=== PATIENT | male | born 1965 | race African-American/Black ===

== ENCOUNTER 2016-12-01 10:28 | Emergency (ER) | payer OTHER ==
[2016-12-01 10:48] VITALS: BP 149/104; PULSE 66; RESP 18; TEMP 97.6
--- NOTE | 2016-12-01 11:28 | XR ---
EXAMINATION TYPE: XR wrist limited RT DATE OF EXAM: 12/01/2016 11:12 AM COMPARISON: 08/11/2016 HISTORY: 51-year-old male with pain from lifting 2 days ago, felt a pop in the wrist. TECHNIQUE: 2 views FINDINGS: There is mild positive ulnar variance noted. The radiocarpal and distal radioulnar joints otherwise a ppear intact and midcarpal compartment also appears intact. The scapholunate interval appears slightl y prominent but at 1.8 mm. This still falls within normal limits. No acute fracture or dislocation se en. IMPRESSION: 1. Incidental positive ulnar variance which can be a cause of ulnar impaction syndrome and can lead t o tears of the TFC. 2. The scapholunate interval is prominent but still measures within normal limits. If indicated and i f there are symptoms of wrist instability, consider a navicular view to get a second look at the scap holunate interval.
--- NOTE | 2016-12-01 11:41 | ED ---
General Adult HPI - General Chief complaint: Extremity Injury, Upper Stated complaint: rt wrist injury Time Seen by Provider: 12/01/16 10:53 Source: patient, RN notes reviewed Mode of arrival: ambulatory Limitations: no limitations - History of Present Illness Initial comments: Patient 51-year-old male who presents emergency room today with chief complaint of increased pain to the right wrist area. He does admit that she felt a pop when he was at work a few days ago with movement of extension and flexion. Patient states that been having some discomfort over the posterior aspect of the right wrist. He states worse with certain movements. Patient denies any other complaint or associate symptoms. Patient does admit that his employer one to come here to the emergency room for a check and possible restriction. Patient denies any recent fever, chills, shortness of breath, chest pain, back pain, abdominal pain, nausea or vomiting, numbness or tingling, dysuria or hematuria, constipation or diarrhea, headaches or visual changes, or any other complaints. - Related Data Previous Rx's Medication Instructions Recorded Ibuprofen [Motrin] 600 mg PO Q6HR PRN #40 day 12/01/16 Allergies Allergy/AdvReac Type Severity Reaction Status Date / Time No Known Allergies Allergy Verified 12/01/16 11:01 Review of Systems ROS Statement: Those systems with pertinent positive or pertinent negative responses have been documented in the HPI. ROS Other: All systems not noted in ROS Statement are negative. Past Medical History Past Medical History: No Reported History Additional Past Medical History / Comment(s): back History of Any Multi-Drug Resistant Organisms: None Reported Additional Past Surgical History / Comment(s): right leg surgery as child Past Psychological History: No Psychological Hx Reported Smoking Status: Never smoker Past Alcohol Use History: None Reported Past Drug Use History: None Reported General Exam - General Exam Comments Initial Comments: General: The patient is awake and alert, in no distress, and does not appear acutely ill. Neck: The neck is supple, there is no tenderness or JVD. Cardiovascular: There is a regular rate and rhythm. No murmur, rub or gallop is appreciated. Respiratory: Lungs are clear to auscultation, respirations are non-labored, breath sounds are equal. No wheezes, stridor, rales, or rhonchi. Musculoskeletal: Normal appearance the right wrist. Shows full range motion. Mild tenderness to the dorsal aspect of the right radius and ulna. Patient shows full range of motion. Pain reproduced with flexion and extension. Sensations intact with pulses equal bilaterally 2+. Neurological: A&O x 3. CN II-XII intact, There are no obvious motor or sensory deficits. Coordination appears grossly intact. Speech is normal. Skin: Skin is warm and dry and no rashes or lesions are noted. Psychiatric: Normal mood and affect. Limitations: no limitations Course Vital Signs 12/01/16 10:44 Temperature 97.6 F Pulse Rate 66 Respiratory 18 Rate Blood Pressure 149/104 O2 Sat by Pulse 96 Oximetry Medical Decision Making - Medical Decision Making Patient's x-ray reviewed shows 1. Incidental positive only variants which he can be a cause ulnar impaction syndrome and can lead to use TFC. 2. Scapholunate interval is prominent but still measures within normal limits. Patient has no instability. Patient denies follow-up with orthopedics. Will be splinted in Tevin wrap. The emergency room. Advised to use when up and moving around. Advised not to sleep. Patient Denies Use Ibuprofen for Pain. Will Be Given a Work Note for Light Duty. Disposition Clinical Impression: Right wrist pain Disposition: HOME SELF-CARE Condition: Good Instructions: Wrist Injury (ED) Additional Instructions: Please follow-up with orthopedics over the next week as discussed. Please return here to the emergency room symptoms increase worsen or for any other concerns. Prescriptions: Ibuprofen [Motrin] 600 mg PO Q6HR PRN #40 day PRN Reason: Pain Referrals: Brenda Vazquez MD [Primary Care Provider] - 1-2 days Caleb Gonzalez MD [STAFF PHYSICIAN] - 1-2 days Time of Disposition: 11:40
== END 2016-12-01 11:52 | disposition home or self-care (01) ==
LOC: EC 10:28
DX: M25.531 Pain in right wrist (principal); X58.XXXA Exposure to other specified factors, initial encounter; Y99.0 Civilian activity done for income or pay
CPT/HCPCS: 99283

== ENCOUNTER 2017-01-13 13:53 | Emergency (ER) | payer OTHER ==
[2017-01-13 14:01] VITALS: BP 141/91; PULSE 76; RESP 18; TEMP 98.4
[2017-01-13] MEDS ORDERED: KETOROLAC 60 MG/2 ML VIAL IM STA (14:18)
[2017-01-13] MEDS ORDERED: ORPHENADRINE 30 MG/ML 2 ML VIAL IM STA (14:18)
--- NOTE | 2017-01-13 14:23 | ED ---
General Adult HPI - General Chief complaint: Back Pain/Injury Stated complaint: Back Pain Time Seen by Provider: 01/13/17 14:10 Source: patient, RN notes reviewed Mode of arrival: ambulatory Limitations: no limitations - History of Present Illness Initial comments: This is a 51-year-old male presents with acute on chronic lower back pain. Patient states he got a new job and has been lifting more at work causing increased lower back pain. Patient denies any numbness/tingling/weakness or radicular pain. Patient denies any change in bowel or bladder function or loss of sensation to the saddle area. Patient denies any fall or injury to the back. Patient has not taken anything for the pain. Patient states his work sent him in for evaluation. Patient is able to ambulate but states standing straight makes his back pain worse. Sitting and resting makes his back pain better. Patient denies any history of asthma, aspirin ALLERGY, bleeding ulcers or kidney problems. Patient denies any recent fever, chills, shortness breath, chest pain, abdominal pain, nausea/vomiting/diarrhea, numbness, tingling, hematuria, headache, or visual changes, or any other complaints. - Related Data Previous Rx's Medication Instructions Recorded Ibuprofen [Motrin] 600 mg PO Q6HR PRN #40 day 12/01/16 Allergies Allergy/AdvReac Type Severity Reaction Status Date / Time No Known Allergies Allergy Verified 01/13/17 14:01 Review of Systems ROS Statement: Those systems with pertinent positive or pertinent negative responses have been documented in the HPI. ROS Other: All systems not noted in ROS Statement are negative. Past Medical History Past Medical History: No Reported History Additional Past Medical History / Comment(s): back History of Any Multi-Drug Resistant Organisms: None Reported Additional Past Surgical History / Comment(s): right leg surgery as child Past Psychological History: No Psychological Hx Reported Smoking Status: Never smoker Past Alcohol Use History: None Reported Past Drug Use History: None Reported General Exam - General Exam Comments Initial Comments: General: The patient is awake and alert, in no distress, and does not appear acutely ill. Neck: No posterior cervical midline tenderness. The neck is supple, there is no tenderness or JVD. Cardiovascular: There is a regular rate and rhythm. No murmur, rub or gallop is appreciated. Respiratory: Lungs are clear to auscultation, respirations are non-labored, breath sounds are equal. No wheezes, stridor, rales, or rhonchi. Musculoskeletal: Patient has tenderness to palpation of the left paraspinal muscles. Otherwise patient has full range of motion, strength 5/5 and Sensation intact. Radial pulses 2+ bilaterally. Patient is ambulatory in the EC. Neurological: A&O x 3. CN II-XII intact, There are no obvious motor or sensory deficits. Coordination appears grossly intact. Speech is normal. Skin: Skin is warm and dry and no rashes or lesions are noted. Psychiatric: Normal mood and affect. Limitations: no limitations Course Vital Signs 01/13/17 13:59 Temperature 98.4 F Pulse Rate 76 Respiratory 18 Rate Blood Pressure 141/91 O2 Sat by Pulse 96 Oximetry Medical Decision Making - Medical Decision Making This is a 51-year-old male presented with chronic lower back pain. On physical exam patient is ambulatory in the EC and patient has mild tenderness to palpation of the left paraspinal muscles. Patient will be given Toradol and Norflex in the EC today. I discussed that patient refrain from lifting at work until his pain subsides. I discussed [id number] naproxen and Tylenol and heating pads for additional pain relief. I discussed return parameters. I discussed the patient follow-up with his primary care physician in one to 2 days or return to the EC for any worsening symptoms or for any further concerns. Patient was receptive to this plan patient will be discharged home. Disposition Clinical Impression: Acute exacerbation of chronic low back pain, Mechanical back pain Disposition: HOME SELF-CARE Condition: Good Instructions: Chronic Back Pain (ED) Additional Instructions: Please refrain from lifting until back pain improves. Please use over-the- counter naproxen/Aleve and/or Tylenol plus heating pads for pain relief. Please follow-up with their doctor in 1-2 days or return to the EC for any worsening symptoms or for any further concerns. Referrals: Brenda Vazquez MD [Primary Care Provider] - 1-2 days Time of Disposition: 14:25
== END 2017-01-13 14:39 | disposition home or self-care (01) ==
LOC: EC 13:53
DX: G89.29 Other chronic pain (principal); M54.5 Low back pain
CPT/HCPCS: 99283; 96372 ×2; J2360; J1885

== ENCOUNTER 2017-02-16 09:21 | Emergency (ER) | payer OTHER ==
[2017-02-16 09:30] VITALS: TEMP 97.5
--- NOTE | 2017-02-16 09:41 | ED ---
Extremity Problem HPI - General Chief complaint: Extremity Problem,Nontraumatic Stated complaint: knee pain Time Seen by Provider: 02/16/17 09:31 Source: patient, RN notes reviewed Mode of arrival: ambulatory Limitations: no limitations - History of Present Illness Initial comments: 52-year-old male presents emergency Department chief complaint right knee pain. Patient states she's been having pain last couple days. Patient states that he has been exercising more trying to lose weight and change in his diet. He states that he has noticed some pain on the medial aspect of his knee worse with movement better with rest. Denies any swelling. States there has been some clicking noted also. Patient states she's had no prior injuries though he does state sees pretty hard on his knees. Patient denies any calf pain, Swelling. Denies any chest pain or shortness breath. Denies any rashes. - Related Data Previous Rx's Medication Instructions Recorded Acetaminophen-Codeine 300-30mg 1 tab PO Q4H PRN #20 tablet 02/16/17 [Tylenol #3] Ibuprofen [Motrin] 600 mg PO Q8HR PRN #30 tab 02/16/17 Allergies Allergy/AdvReac Type Severity Reaction Status Date / Time No Known Allergies Allergy Verified 02/16/17 09:45 Review of Systems ROS Statement: Those systems with pertinent positive or pertinent negative responses have been documented in the HPI. ROS Other: All systems not noted in ROS Statement are negative. Past Medical History Past Medical History: No Reported History Additional Past Medical History / Comment(s): back History of Any Multi-Drug Resistant Organisms: None Reported Additional Past Surgical History / Comment(s): right leg surgery as child Past Psychological History: No Psychological Hx Reported Smoking Status: Never smoker Past Alcohol Use History: None Reported Past Drug Use History: None Reported General Exam Limitations: no limitations General appearance: alert, in no apparent distress Head exam: Present: atraumatic, normocephalic, normal inspection Neck exam: Present: normal inspection. Absent: tenderness, meningismus, lymphadenopathy Respiratory exam: Present: normal lung sounds bilaterally. Absent: respiratory distress, wheezes, rales, rhonchi, stridor Cardiovascular Exam: Present: regular rate, normal rhythm, normal heart sounds. Absent: systolic murmur, diastolic murmur, rubs, gallop, clicks Extremities exam: Present: other (Right knee full range of motion neurovascular intact there is no erythema no warmth no rashes and no edema patient has minimal tenderness on medial aspect along the joint line negative anterior posterior drawer tests joint above and below the right knee within normal limits ) Neurological exam: Present: reflexes normal. Absent: motor sensory deficit Skin exam: Present: warm, dry, intact, normal color. Absent: rash Course Vital Signs 02/16/17 09:28 Temperature 97.5 F L Pulse Rate 77 Respiratory 20 Rate Blood Pressure 143/97 O2 Sat by Pulse 98 Oximetry Medical Decision Making - Medical Decision Making 52-year-old male presented for knee pain. Patient has medial knee pain and right leg. Patient has some mild narrowing of a compartment on the medial aspect. Patient also has foreign body noted on x-ray. Patient may have a meniscus injury. Patient will follow-up with orthopedics return parameters were discussed. Disposition Clinical Impression: Right knee pain Disposition: HOME SELF-CARE Condition: Stable Instructions: Knee Pain (ED) Additional Instructions: Please return to the Emergency Department if symptoms worsen or any other concerns. Prescriptions: Acetaminophen-Codeine 300-30mg [Tylenol #3] 1 tab PO Q4H PRN #20 tablet PRN Reason: pain Ibuprofen [Motrin] 600 mg PO Q8HR PRN #30 tab PRN Reason: Pain Referrals: Brenda Vazquez MD [Primary Care Provider] - 1-2 days Wu Macedo DO [Doctor of Osteopathic Medicine] - 1-2 days Time of Disposition: 10:19
--- NOTE | 2017-02-16 10:12 | XR ---
EXAMINATION TYPE: XR knee complete RT DATE OF EXAM: 02/16/2017 9:59 AM COMPARISON: NONE HISTORY: 52 year-old male right knee pain for a few days TECHNIQUE: 3 views FINDINGS: Marginal spurring within the medial compartment. No acute fracture, subluxation, or dislocation. Enth esopathy seen at the superior and inferior patella. No significant knee joint effusion. Extensor mech anism is intact. No acute fracture or dislocation. There is a linear density seen projecting in the s oft tissues of the upper leg approximately 18 cm below the knee joint line. This is seen on the AP an d oblique views. IMPRESSION: 1. Mild medial compartment osteoarthrosis. No acute osseous abnormality seen. 2. A linear density projecting in the soft tissues of the upper leg, approximately 18 cm below the kn ee joint line. Refer to the AP and oblique views. Possible external artifact. Correlate to exclude re tained foreign body such as a needle.
[2017-02-16 10:28] VITALS: BP 130/84; PULSE 70; RESP 18
== END 2017-02-16 10:28 | disposition home or self-care (01) ==
LOC: EC 09:21
DX: M25.561 Pain in right knee (principal); Z98.890 Other specified postprocedural states
CPT/HCPCS: 99283

== ENCOUNTER 2018-11-30 10:59 | Emergency (ER) | payer OTHER ==
[2018-11-30 11:20] VITALS: BP 158/114; PULSE 67; RESP 18; TEMP 98.2
--- NOTE | 2018-11-30 12:09 | XR ---
EXAMINATION TYPE: XR hand complete RT DATE OF EXAM: 11/30/2018 CLINICAL HISTORY: Pain since jamming injury. TECHNIQUE: Frontal, lateral and oblique images of the right hand are obtained. COMPARISON: Right hand x-ray August 11, 2016 FINDINGS: There is no acute fracture/dislocation evident in the right hand. The joint spaces in the right hand appear within normal limits. The overlying soft tissue appears unremarkable. IMPRESSION: There is no acute fracture or dislocation in the right hand. No significant change from prior.
--- NOTE | 2018-11-30 12:24 | ED ---
Upper Extremity HPI - General Chief Complaint: Extremity Injury, Upper Stated Complaint: Finger injury Time Seen by Provider: 11/30/18 11:44 Source: patient Mode of arrival: ambulatory Limitations: no limitations - History of Present Illness Initial Comments: 83-year-old male with past medical history of hypertension presenting today for chief complaint of right digits 2 and 3 pain. Patient states he was shoveling and working outside when he had extended digits 2 and 3. Patient denies noticing any dislocation. Patient states he is able to range with pain. Patient denies any numbness tingling or loss sensation. Patient denies any wrist pain, elbow or shoulder pain. Patient denies any injury to neck falls or trauma. Patient denies any soft tissue swelling. Patient denies any redness or warmth to palpation. Patient's concerned about finger strain, he states he felt a pop. Patient attempted to work, his boss told him he should come to the emergency for evaluation. Upon arrival patient's remainder of review of systems negative, patient denies any recent fever, chills, shortness of breath, chest pain, back pain, abdominal pain, nausea or vomiting, numbness or tingling , dysuria or hematuria, constipation or diarrhea, headaches or visual changes, or any other complaints. - Related Data Previous Rx's Medication Instructions Recorded Acetaminophen-Codeine 300-30mg 1 tab PO Q4H PRN #20 tablet 02/16/17 [Tylenol #3] Ibuprofen [Motrin] 600 mg PO Q8HR PRN #30 tab 02/16/17 Allergies Allergy/AdvReac Type Severity Reaction Status Date / Time No Known Allergies Allergy Verified 11/30/18 11:20 Review of Systems ROS Statement: Those systems with pertinent positive or pertinent negative responses have been documented in the HPI. ROS Other: All systems not noted in ROS Statement are negative. Past Medical History Past Medical History: No Reported History Additional Past Medical History / Comment(s): back History of Any Multi-Drug Resistant Organisms: None Reported Additional Past Surgical History / Comment(s): right leg surgery as child Past Psychological History: No Psychological Hx Reported Smoking Status: Never smoker Past Alcohol Use History: None Reported Past Drug Use History: None Reported General Exam - General Exam Comments Initial Comments: General: The patient is awake and alert, in no distress, and does not appear acutely ill. Eye: Pupils are equal, round and reactive to light, extra-ocular movements are intact. No nystagmus. There is normal conjunctiva bilaterally. No signs of icterus. Ears, nose, mouth and throat: There are moist mucous membranes and no oral lesions. Neck: The neck is supple, there is no tenderness or JVD. Cardiovascular: There is a regular rate and rhythm. No murmur, rub or gallop is appreciated. Respiratory: Lungs are clear to auscultation, respirations are non-labored, breath sounds are equal. No wheezes, stridor, rales, or rhonchi. Musculoskeletal: Upon inspection of the digits of the left right hands are equal and comparison bilaterally. No fixed flexed or extended positions of digits 2 and 3 of the right hand. Each joint including MTP DIP and PIP joints were isolated of digits 2 and 3. Patient has full strength 55 as well as full ability. No evidence of obvious tendinous injury. Patient has full sensation both distal and proximal to injury site. Capillary refill less than 2 seconds. Radial pulse +2 equal bilaterally. Patient is able to make the okay fingers crossed and finger opposition of the hands bilaterally. Ulnar median and radial nerve intact. Patient tender palpation at the MTP joints of digits 2 and 3 of the right hand. No other areas of tenderness noted. Normal examination of the upper Cas[place] shoulders bilaterally. Neurological: A&O x 3. CN II-XII intact, There are no obvious motor or sensory deficits. Coordination appears grossly intact. Speech is normal. Skin: Skin is warm and dry and no rashes or lesions are noted. Psychiatric: Cooperative, appropriate mood & affect, normal judgment. Limitations: no limitations Course Vital Signs 11/30/18 11:19 Temperature 98.2 F Pulse Rate 67 Respiratory 18 Rate Blood Pressure 158/114 O2 Sat by Pulse 96 Oximetry Medical Decision Making - Medical Decision Making 53-year-old with complaint of digit pain and history of hyperextension. No obvious tendon injury on exam. X-ray negative for acute osseous process. Patient neurovascularly intact. Patient's fingers gerson taped. Patient instructed to take ibuprofen and Tylenol for pain management. Patient given orthopedic surgery follow-up for a decreased range of motion or weakness. Patient is to follow-up with primary care physician in the next 1-2 days. Patient given a work note. At this time do feel patient is stable for discharge , patient is to return to work with restrictions and use of right hand. Patient has restricted until primary care clearance. Patient is agreeable plan. Return parameters discussed at length, patient verbalizes understanding. Patient discharged stable condition appearing well. Patient had elevated blood pressure upon arrival, I struck the patient to follow-up with primary care provider for further evaluation. Patient denies any symptoms concerning for end organ damage. Isolated reading. Patient discharged in stable condition appearing well. Disposition Clinical Impression: Finger sprain Disposition: HOME SELF-CARE Condition: Good Instructions (If sedation given, give patient instructions): Finger Sprain (ED) Additional Instructions: Please use medication as discussed. Please follow-up with family doctor in the next 2 days for evaluation and elevated BP reading, please follow-up with orthopedic surgery for persistent symptoms or and limitations in ROM. Please return to emergency room if the symptoms increase or worsen or for any other concerns. Is patient prescribed a controlled substance at d/c from ED?: No Referrals: Brenda Vazquez MD [Primary Care Provider] - 1-2 days Caleb Gonzalez MD [STAFF PHYSICIAN] - 1-2 days Time of Disposition: 12:24
== END 2018-11-30 12:43 | disposition home or self-care (01) ==
LOC: EC 10:59
DX: S63.610A Unspecified sprain of right index finger, initial encounter (principal); S63.612A Unspecified sprain of right middle finger, initial encounter; W23.0XXA Caught, crushed, jammed, or pinched between moving objects, initial encounter; Y93.H1 Activity, digging, shoveling and raking
CPT/HCPCS: 99283

== ENCOUNTER 2018-12-10 10:57 | Emergency (ER) | payer OTHER ==
[2018-12-10 11:12] VITALS: PULSE 64; RESP 18
[2018-12-10] MEDS ORDERED: KETOROLAC 30 MG/ML 1 ML VIAL IM STA (11:35)
--- NOTE | 2018-12-10 11:40 | ED ---
General Adult HPI - General Chief complaint: Extremity Problem,Nontraumatic Stated complaint: Knee pain Time Seen by Provider: 12/10/18 11:22 Source: patient, RN notes reviewed Mode of arrival: ambulatory Limitations: no limitations - History of Present Illness Initial comments: 53-year-old male presents to the emergency department for a chief complaint of right knee pain. Patient states this began yesterday. Patient states it hurts in the lateral superior aspect of the right knee. He states this hurts more with flexion and with walking. Patient states his job wanted him to be evaluated. He denies any injuries. Patient denies any history of blood clots. He denies any pain in the posterior knee or calf. Denies noticing any swelling. Denies any fevers or warmth noted of the right knee. Patient states he has been very active and is a fast walker and is concerned he may have injured his knee. Patient has no other complaints at this time including shortness of breath, chest pain, abdominal pain, nausea or vomiting, headache, or visual changes. - Related Data Home Medications Medication Instructions Recorded Confirmed No Known Home Medications 12/10/18 12/10/18 Allergies Allergy/AdvReac Type Severity Reaction Status Date / Time No Known Allergies Allergy Verified 12/10/18 12:09 Review of Systems ROS Statement: Those systems with pertinent positive or pertinent negative responses have been documented in the HPI. ROS Other: All systems not noted in ROS Statement are negative. Past Medical History Past Medical History: No Reported History Additional Past Medical History / Comment(s): back History of Any Multi-Drug Resistant Organisms: None Reported Additional Past Surgical History / Comment(s): right leg surgery as child Past Psychological History: No Psychological Hx Reported Smoking Status: Never smoker Past Alcohol Use History: None Reported Past Drug Use History: None Reported General Exam Limitations: no limitations General appearance: alert, in no apparent distress Head exam: Present: atraumatic, normocephalic, normal inspection Eye exam: Present: normal appearance, PERRL, EOMI. Absent: scleral icterus, conjunctival injection, periorbital swelling ENT exam: Present: normal exam, normal oropharynx, mucous membranes moist, TM's normal bilaterally, normal external ear exam Neck exam: Present: normal inspection, full ROM. Absent: tenderness, meningismus, lymphadenopathy Respiratory exam: Present: normal lung sounds bilaterally. Absent: respiratory distress, wheezes, rales, rhonchi, stridor Cardiovascular Exam: Present: regular rate, normal rhythm, normal heart sounds. Absent: systolic murmur, diastolic murmur, rubs, gallop, clicks Extremities exam: Present: tenderness (Minimal tenderness noted to the right lateral superior aspect of the right knee. No posterior knee tenderness. No tenderness in the generalized knee.), normal capillary refill (Capillary refill less than 2 seconds and DP pulse 2+ in the right lower extremity), other ( Sensation intact in the right lower extremity.). Absent: full ROM (Patient has full extension with 90 flexion of the right knee), joint swelling (No edema, erythema, increased warmth noted in the right knee), calf tenderness (No tenderness in the right calf, negative Homans sign, no erythema or increased warmth,) Course Vital Signs 12/10/18 12/10/18 11:09 13:40 Temperature 97.6 F 98.2 F Pulse Rate 64 64 Respiratory 18 18 Rate Blood Pressure 172/72 141/98 O2 Sat by Pulse 97 98 Oximetry Medical Decision Making - Medical Decision Making X-ray of the right knee shows tricompartmental arthropathy most pronounced in the patellofemoral compartment. Likely the cause of patient's pain given the location of pain, no swelling, and patient's weight. Patient will take Motrin and Tylenol for pain and follow-up with orthopedics. Discussed returning if he has significant swelling or any other worsening symptoms. Disposition Clinical Impression: Knee pain, right Disposition: HOME SELF-CARE Condition: Good Instructions (If sedation given, give patient instructions): Knee Pain (ED) Additional Instructions: Please take Motrin and Tylenol for pain. Please follow-up with orthopedics in one to 2 days. Return to the emergency department if you have any worsening symptoms. Is patient prescribed a controlled substance at d/c from ED?: No Referrals: Brenda Vazquez MD [Primary Care Provider] - 1-2 days Miguel Bo MD [STAFF PHYSICIAN] - 1-2 days Time of Disposition: 13:21
--- NOTE | 2018-12-10 12:21 | XR ---
EXAMINATION TYPE: XR knee complete RT DATE OF EXAM: 12/10/2018 CLINICAL HISTORY: Right knee pain TECHNIQUE: Three views of the right knee are obtained. COMPARISON: 02/16/2017 FINDINGS: There is no acute fracture/dislocation evident in right knee. Protuberant osteophytes are seen from the superior and inferior patellar poles. Very small osteophytes are noted of the medial an d lateral compartments. Minimal medial compartment joint space narrowing is noted.. The overlying so ft tissue appears unremarkable. Artifacts are seen on the lateral view from overlying metallic densit ies. IMPRESSION: There is no acute fracture or dislocation in the right knee. Tricompartmental arthropath y most pronounced in the patellofemoral compartment.
[2018-12-10 13:42] VITALS: BP 141/98; TEMP 98.2
== END 2018-12-10 13:44 | disposition home or self-care (01) ==
LOC: EC 10:57
DX: M25.512 Pain in left shoulder (principal); M12.861 Other specific arthropathies, not elsewhere classified, right knee
CPT/HCPCS: 73562; 99283; 96372; J1885

== ENCOUNTER 2019-05-06 11:40 | Emergency (ER) | payer OTHER ==
[2019-05-06 11:45] VITALS: BP 151/78; PULSE 87; RESP 18; TEMP 98.4
--- NOTE | 2019-05-06 12:11 | ED ---
Back Pain HPI - General Chief Complaint: Back Pain/Injury Stated Complaint: Lower back pain Time Seen by Provider: 05/06/19 11:49 Source: patient, RN notes reviewed Mode of arrival: ambulatory Limitations: no limitations - History of Present Illness Initial Comments: 54-year-old male presents emergency Department chief complaint of low back pain. Patient states his ongoing chronic issue. Patient denies any bowel bladder incontinence or retention. Patient states that he has no saddle anesthesias or lower shunted paresthesias. Patient states occasionally get some pain areas to his left leg. Patient states that she an injury 6 years ago which a started. Patient states that he's been doing more heavy lifting which is worsening symptoms. He has not tried taking any Tylenol Motrin. Patient does not do any daily stretching has not seen a referrals back pain at this time. - Related Data Previous Rx's Medication Instructions Recorded Cyclobenzaprine [Flexeril] 10 mg PO TID PRN #15 tab 05/06/19 Ibuprofen [Motrin] 600 mg PO Q8HR PRN #30 tab 05/06/19 Allergies Allergy/AdvReac Type Severity Reaction Status Date / Time No Known Allergies Allergy Verified 05/06/19 11:45 Review of Systems ROS Statement: Those systems with pertinent positive or pertinent negative responses have been documented in the HPI. ROS Other: All systems not noted in ROS Statement are negative. Past Medical History Past Medical History: No Reported History Additional Past Medical History / Comment(s): back History of Any Multi-Drug Resistant Organisms: None Reported Additional Past Surgical History / Comment(s): right leg surgery as child Past Psychological History: No Psychological Hx Reported Smoking Status: Never smoker Past Alcohol Use History: None Reported Past Drug Use History: None Reported General Exam Limitations: no limitations General appearance: alert, in no apparent distress Head exam: Present: atraumatic, normocephalic, normal inspection Neck exam: Present: normal inspection, full ROM. Absent: tenderness, meningismus, lymphadenopathy Respiratory exam: Present: normal lung sounds bilaterally. Absent: respiratory distress, wheezes, rales, rhonchi, stridor Cardiovascular Exam: Present: regular rate, normal rhythm, normal heart sounds. Absent: systolic murmur, diastolic murmur, rubs, gallop, clicks GI/Abdominal exam: Present: soft, normal bowel sounds. Absent: distended, t enderness, guarding, rebound, rigid Extremities exam: Present: other (Lower extremity strength equal bilaterally, neurovascular intact pedal pulses equal) Back exam: Present: full ROM, tenderness, paraspinal tenderness. Absent: vertebral tenderness Neurological exam: Present: alert, oriented X3, CN II-XII intact, reflexes normal. Absent: motor sensory deficit Course Vital Signs 05/06/19 11:42 Temperature 98.4 F Pulse Rate 87 Respiratory 18 Rate Blood Pressure 151/78 O2 Sat by Pulse 98 Oximetry Medical Decision Making - Medical Decision Making 54-year-old male presented for back pain. Patient had a lumbar strain he has no red flag symptoms. Patient has not tried any medications for treatment. Patient was started on ibuprofen and Flexeril. Patient will follow-up with Dr. Martinez no improvement. Disposition Clinical Impression: Chronic back pain, Low back strain Disposition: HOME SELF-CARE Condition: Stable Instructions (If sedation given, give patient instructions): Acute Low Back Pain (ED) Additional Instructions: Please return to the Emergency Department if symptoms worsen or any other concerns. Prescriptions: Cyclobenzaprine [Flexeril] 10 mg PO TID PRN #15 tab PRN Reason: Muscle Spasm Ibuprofen [Motrin] 600 mg PO Q8HR PRN #30 tab PRN Reason: Pain Is patient prescribed a controlled substance at d/c from ED?: No Referrals: Brenda Vazquez MD [Primary Care Provider] - 1-2 days Dali Rodriguez DO [Doctor of Osteopathic Medicine] - 1-2 days Time of Disposition: 12:11
== END 2019-05-06 12:23 | disposition home or self-care (01) ==
LOC: EC 11:40
DX: S39.012A Strain of muscle, fascia and tendon of lower back, initial encounter (principal); X50.0XXA Overexertion from strenuous movement or load, initial encounter
CPT/HCPCS: 99283

== ENCOUNTER 2019-09-07 15:27 | Emergency (ER) | payer OTHER ==
[2019-09-07 15:43] VITALS: BP 157/92; PULSE 72; RESP 18; TEMP 98.2
[2019-09-07] MEDS ORDERED: CYCLOBENZAPRINE 10MG STARTER 3 TAB BTL PO STA (16:00)
[2019-09-07] MEDS ORDERED: IBUPROFEN 600 MG STARTER PACK 4 TAB BTL PO STA (16:00)
--- NOTE | 2019-09-07 16:01 | ED ---
Lower Extremity Injury HPI - General Chief Complaint: Extremity Injury, Lower Stated Complaint: rt leg, back pain Time Seen by Provider: 09/07/19 15:47 Source: patient Mode of arrival: ambulatory Limitations: no limitations - History of Present Illness Initial Comments: 54-year-old male patient presents to the emergency department today for multiple complaints. Patient states he is having increased low back pain with radiation down the left leg. Patient states he has had this pain for quite some time and is working on getting disability. Patient states he is here to request recommendation for a specialist for further evaluation of his pain. Patient is also reporting has swelling and tenderness to the right hutson. Patient states couple of days ago he hit the hutson on a table while walking by. States the area immediately became swollen and tender. He states that the swelling has improved, but he wanted to get it checked out. He denies any numbness or tingling to the rectum use. Denies any saddle anesthesia or loss of bowel or bladder control. He is able to ambulate on his leg without much discomfort. Denies any other injuries or concerns. Patient denies any headache, neck pain, chest pain, shortness of breath, dizziness, weakness, abdominal pain, nausea, vomiting, or difficulties with bowel movements or urination. - Related Data Previous Rx's Medication Instructions Recorded Cyclobenzaprine [Flexeril] 10 mg PO TID PRN #15 tab 05/06/19 Ibuprofen [Motrin] 600 mg PO Q8HR PRN #30 tab 05/06/19 Cyclobenzaprine [Flexeril] 10 mg PO TID #15 tab 09/07/19 Allergies Allergy/AdvReac Type Severity Reaction Status Date / Time No Known Allergies Allergy Verified 09/07/19 15:43 Review of Systems ROS Statement: Those systems with pertinent positive or pertinent negative responses have been documented in the HPI. ROS Other: All systems not noted in ROS Statement are negative. Past Medical History Past Medical History: No Reported History Additional Past Medical History / Comment(s): chronic back pain History of Any Multi-Drug Resistant Organisms: None Reported Additional Past Surgical History / Comment(s): right leg surgery as child Past Psychological History: No Psychological Hx Reported Smoking Status: Never smoker Past Alcohol Use History: None Reported Past Drug Use History: None Reported General Exam Limitations: no limitations General appearance: alert, in no apparent distress, other (This is a well- developed, well-nourished adult male patient in no acute distress. Vital signs upon presentation are temperature 98.2F, pulse 72, respirations 18, blood pressure 157/92, pulse ox 99% on room air.) Respiratory exam: Present: normal lung sounds bilaterally. Absent: respiratory distress, wheezes, rales, rhonchi, stridor Cardiovascular Exam: Present: regular rate, normal rhythm, normal heart sounds. Absent: systolic murmur, diastolic murmur, rubs, gallop, clicks GI/Abdominal exam: Present: soft, normal bowel sounds. Absent: distended, tenderness, guarding, rebound, rigid Extremities exam: Present: full ROM, tenderness (Over the right anterior hutson), normal capillary refill, other (There is soft tissue swelling noted over the right anterior hutson. No ecchymosis. Skin is otherwise pink, warm, dry. Cap refills less than 3 seconds. Pedal and posttibial pulses are 2+ and equal bilaterally.). Absent: pedal edema, joint swelling, calf tenderness Back exam: Present: normal inspection. Absent: vertebral tenderness Neurological exam: Present: alert, oriented X3, CN II-XII intact, other (Strength in the lower extremities is 5/5.) Psychiatric exam: Present: normal affect, normal mood Skin exam: Present: warm, dry, intact, normal color. Absent: rash Course Vital Signs 09/07/19 15:40 Temperature 98.2 F Pulse Rate 72 Respiratory 18 Rate Blood Pressure 157/92 O2 Sat by Pulse 99 Oximetry Medical Decision Making - Medical Decision Making 54-year-old male patient is brought to the emergency department today for evaluation of chronic low back pain and hematoma to the right anterior hutson. Patient has no bony tenderness to the right leg, is able to ambulate without difficulty or discomfort so we will not x-ray this, symptoms are consistent with hematoma. We'll give Tevin wrap for compression and instructed to apply ice. Back pain is chronic in nature. He reports no new injuries. He has no concerning symptoms for cauda equina. He'll be discharged follow-up with orthopedic smoke and flame specialist Dr. Martinez for further evaluation. He is instructed to follow up with his primary care physician for recheck in 1-2 days. Return parameters were discussed in detail. He verbalizes understanding and agrees with this plan. Disposition Clinical Impression: Hematoma of right lower extremity, Chronic sciatica of left side Disposition: HOME SELF-CARE Condition: Good Instructions (If sedation given, give patient instructions): Sciatica (ED), Hematoma (ED) Additional Instructions: Use Tevin wrap for comfort and support. Take medication as directed. Keep leg elevated. Follow-up with nurse orthopedic for further evaluation of her chronic low back pain. Return to the emergency department immediately for any new, worsening, or concerning symptoms. Prescriptions: Cyclobenzaprine [Flexeril] 10 mg PO TID #15 tab Is patient prescribed a controlled substance at d/c from ED?: No Referrals: Brenda Vazquez MD [Primary Care Provider] - 1-2 days Dali Rodriguez DO [Doctor of Osteopathic Medicine] - 1-2 days Time of Disposition: 16:01
== END 2019-09-07 16:41 | disposition home or self-care (01) ==
LOC: EC 15:27
DX: S80.11XA Contusion of right lower leg, initial encounter (principal); M54.42 Lumbago with sciatica, left side; Z98.890 Other specified postprocedural states; W22.03XA Walked into furniture, initial encounter; Y93.01 Activity, walking, marching and hiking
CPT/HCPCS: 99283

== ENCOUNTER 2019-11-26 14:01 | Emergency (ER) | payer OTHER ==
[2019-11-26 14:06] VITALS: BP 159/87; PULSE 83; RESP 18; TEMP 97.6
[2019-11-26] MEDS ORDERED: oxyCODONE-APAP 5-325MG 1 EACH TAB PO STA (14:24)
--- NOTE | 2019-11-26 14:26 | ED ---
Back Pain HPI - General Chief Complaint: Back Pain/Injury Stated Complaint: Back and shoulder pain Time Seen by Provider: 11/26/19 14:06 Source: patient Limitations: no limitations - History of Present Illness Initial Comments: 54-year-old male with history of chronic pain including bilateral chronic shoulder pain, chronic low back pain with history of sciatica. Patient states that he takes ibuprofen and " a small pill" which he believes is tramadol at home for chronic pain. He states he is trying to get disability for this chronic pain. Patient denies any changes or falls, but states that he is out of his medication and has pain in his back radiating down his left leg. Patient denies any fevers, he denies any numbness tingling loss sensation of the lower extremities. Patient denies any inability to ambulate denies loss of bowel bladder control denies history of cancer or chronic steroid use. Patient denies any increase in the radiation the pain down the leg. Patient denies changes in characteristic of left shoulder pain, states it increases with all movement. Denies weakness. Denies SOB or CP. Denies jaw pain, history of TX, DM or HTN. Patient states he is simply here for pain management. Patient states this is usually handled by Dr. Pearce. Upon arrival patient appears well there is no signs of distress. VS reveal mild elevation of BP. - Related Data Previous Rx's Medication Instructions Recorded Cyclobenzaprine [Flexeril] 10 mg PO TID PRN #15 tab 05/06/19 Ibuprofen [Motrin] 600 mg PO Q8HR PRN #30 tab 05/06/19 Cyclobenzaprine [Flexeril] 10 mg PO TID #15 tab 09/07/19 Allergies Allergy/AdvReac Type Severity Reaction Status Date / Time No Known Allergies Allergy Verified 09/07/19 15:43 Review of Systems ROS Statement: Those systems with pertinent positive or pertinent negative responses have been documented in the HPI. ROS Other: All systems not noted in ROS Statement are negative. Past Medical History Past Medical History: No Reported History Additional Past Medical History / Comment(s): chronic back pain History of Any Multi-Drug Resistant Organisms: None Reported Additional Past Surgical History / Comment(s): right leg surgery as child Past Psychological History: No Psychological Hx Reported Smoking Status: Never smoker Past Alcohol Use History: None Reported Past Drug Use History: None Reported General Exam - General Exam Comments Initial Comments: General: The patient is awake and alert, in no distress, and does not appear acutely ill. Eye: +3 mm pupils are equal, round and reactive to light, extra-ocular movements are intact. No nystagmus. There is normal conjunctiva bilaterally. No signs of icterus. Ears, nose, mouth and throat: There are moist mucous membranes and no oral lesions. Neck: The neck is supple, there is no tenderness or JVD. Cardiovascular: There is a regular rate and rhythm. No murmur, rub or gallop is appreciated. Respiratory: Lungs are clear to auscultation, respirations are non-labored, breath sounds are equal. No wheezes, stridor, rales, or rhonchi. Gastrointestinal: Soft, non-distended, non-tender abdomen without masses or organomegaly noted. There is no rebound or guarding present. Refuses rectal exam. Musculoskeletal: No midline tenderness to palpation of the cervical thoracic or lumbar spine, mild paravertebral tenderness, normal inspection of the cervical thoracic and lumbar spine. Normal ROM, no tenderness. Strength 5/5 of the UE equal b/l the LE equal b/l. Sensation intact and equal of the UE and LE b/l including the saddle region. Radial and DP pulses equal bilaterally 2+. Neurological: A&O x 3. CN II-XII intact grosly, There are no obvious motor or sensory deficits. Coordination appears grossly intact. Speech is normal. Skin: Skin is warm and dry and no rashes or lesions are noted. No LE edema. Psychiatric: Cooperative, appropriate mood & affect, normal judgment. Limitations: no limitations Course Vital Signs 11/26/19 14:05 Temperature 97.6 F Pulse Rate 83 Respiratory 18 Rate Blood Pressure 159/87 O2 Sat by Pulse 98 Oximetry Medical Decision Making - Medical Decision Making 54-year-old male presenting today for chief complaint of chronic back and shoulder pain patient states that he needs pain medications. She denies any new symptoms. Patient denies any chest pain shortness of breath. Patient states h e has not any imaging studies at this time and states he has had previous. Patient states he is scheduled to follow-up with a specialist. Patient appears well, ambulatory no distress. At this time i feel he is stable for discharge with outpatient PCP f/u. Patient is agreeable to this care plan and discharge at this time. Discused case with Dr. Card. Disposition Clinical Impression: Chronic low back pain, Radiculopathy, Chronic shoulder pain Disposition: HOME SELF-CARE Condition: Good Instructions (If sedation given, give patient instructions): Chronic Back Pain (DC) Additional Instructions: Please use medication as discussed. Please follow-up with family doctor in the next 2 days. Please return to emergency room if the symptoms increase or worsen or for any other concerns. Is patient prescribed a controlled substance at d/c from ED?: No Referrals: Brenda Vazquez MD [Primary Care Provider] - 1-2 days Time of Disposition: 15:04
== END 2019-11-26 15:25 | disposition home or self-care (01) ==
LOC: EC 14:01
DX: G89.29 Other chronic pain (principal); M54.5 Low back pain; M25.511 Pain in right shoulder; M25.512 Pain in left shoulder; M54.10 Radiculopathy, site unspecified
CPT/HCPCS: 99283

== ENCOUNTER 2020-01-14 | Emergency (ER) | payer OTHER | END 2020-01-14 14:46 | disposition home or self-care (01) | DX: J10.1 Influenza due to other identified influenza virus with other respiratory manifestations (principal) | CPT/HCPCS: 87081; 87430; 87502; 99284 ==